=== PATIENT | male | born 1980 | race Native Hawaiian/Other Pacific Islander ===

== ENCOUNTER 2023-12-20 08:24 | Outpatient (CLI) | payer BC | END 2023-12-20 19:24 | disposition home or self-care (01) | LOC: MRI 08:24 | PROVIDERS: ATTEND Nurse Practitioner Family | DX: R93.5 Abnormal findings on diagnostic imaging of other abdominal regions, including retroperitoneum (principal); K76.89 Other specified diseases of liver; R74.8 Abnormal levels of other serum enzymes; R10.13 Epigastric pain | CPT/HCPCS: A9576 ==